=== PATIENT | female | born 1960 | race Two or more races ===

== ENCOUNTER 2019-09-12 15:23 | Emergency (ER) | payer MEDICAID, OTHER ==
[~2019-09-12] VITALS: Ht 157.5 cm; Wt 108.9 kg
[2019-09-12 16:22] LABS: Basophils # (auto) 0.1 uL; Basophils % (auto) 0.5 % (0.0-2.0); Eosinophils # (auto) 0 uL; Eosinophils % (auto) 0.3 % (0.0-7.0); Hematocrit 39.6 % (36.0-46.0); Hemoglobin 13.5 g/dL (12.2-16.2); Lymphocytes # (auto) 1.2 uL; Lymphocytes % (auto) 11.6 % (10.0-50.0); Mean Corpuscular Hemoglobin 29.2 pg (28.0-32.0); Mean Corpuscular Volume 85.8 fL (80.0-100.0); Monocytes % (auto) 9.7 % (0.0-12.0); Neutrophils # (auto) 8.2 uL; Neutrophils % (auto) 77.9 % (37.0-80.0); Platelet Count (auto) 156 10^3/uL (140-450); Red Blood Cells 4.61 10^6/uL (4.0-5.20); White Blood Cell 10.5 10^3/uL (4.4-10.8)
[2019-09-12 16:26] LABS: Urine Bacteria NONE SEEN /hpf (None Seen); Urine Blood 1+ /uL (Negative); Urine Specific Gravity 1.011 (1.001-1.035); Urine WBC 1 /hpf (0 - 5)
[2019-09-12 16:41] LABS: Albumin 3.7 g/dL (3.4-5.0); Anion Gap 5 (5-15); Blood Urea Nitrogen 16 mg/dL (7-18); Calcium 9.1 mg/dL (8.5-10.1); Carbon Dioxide 28 mmol/L (21-32); Chloride 106 mmol/L (98-107); Glucose 96 mg/dL (74-106); Potassium 3.9 mmol/L (3.5-5.1); Sodium 139 mmol/L (136-145)
[2019-09-12 16:46] LABS: Alanine Aminotransferase 16 U/L (13-56); Alkaline Phosphatase 76 U/L (45-117); Aspartate Aminotransferase 14 U/L (15-37); BUN/Creatinine Ratio 11.9; Bilirubin, Total 1.1 mg/dL (0.2-1.0); GFR African American 52 mL/min; GFR Non-African American 43 mL/min; INR 1.01 (0.9-1.15); Partial Thromboplastin Time 30.7 sec (23.64-32.05); Total Protein 7.5 g/dL (6.4-8.2)
[2019-09-12 18:15] VITALS: BP 138/77
[2019-09-12] MEDS ORDERED: cefTRIAXone W LIDOCAINE 1 GM IM IM ONE (18:15)
[2019-09-12] MEDS ORDERED: cefTRIAXone SOD 1,000 MG VL IM ONE (18:15)
[2019-09-12] MEDS ORDERED: ACETAMINOPHEN 325 MG TAB PO ONE (18:15)
[2019-09-12] MEDS ORDERED: LIDOCAINE 2% (LOCAL ANESTH.) PF 5ml SDV ONE (18:16)
== END 2019-09-12 19:00 | disposition home or self-care (01) ==
LOC: ER 15:23
DX: J40 Bronchitis, not specified as acute or chronic (principal); R51 Headache; J44.9 Chronic obstructive pulmonary disease, unspecified; I10 Essential (primary) hypertension
CPT/HCPCS: 36415; 71046; 80053; 81001; 83735; 83880; 84484; 85025; 85610; 85730; 93005; 96372; 99284; J0696; J2001